=== PATIENT | female | born 1960 | race African-American/Black ===

== ENCOUNTER 2019-04-22 05:15 | Inpatient (IN) ==
[2019-04-22] MEDS ORDERED: NITROGLYCERIN 2% OINT 1 INCH/GM PACK TOP STA (06:20)
[2019-04-22] MEDS ORDERED: ASPIRIN 325 MG TABLET PO STA (06:20)
[2019-04-22] MEDS ORDERED: NITROGLYCERIN SL 0.4 MG TABLET SL PRN (06:20)
[2019-04-22 06:30] LABS: Basophils % 0.2 % (0.0-0.8); Eosinophils # 0.4 10*3/uL (0.0-0.87); Eosinophils % 7.2 % (0.00-10.9); Hematocrit 31.6 VOL% (35.7-47.0); Hemoglobin 9.8 GM/DL (12.0-16.0); Immature Granulocytes % 0.4 %; Immature Granulocytes Absolute 0.02 #; Lymphocytes # 0.8 10*3/uL (1.4-4.0); Lymphocytes % 17.4 % (21.3-54.2); Mean Corpuscular Volume 91.6 FL (87-102); Mean Platelet Volume 10.5 FL (9.6-12.0); Monocytes % 4.8 % (1.7-12.7); Platelet Count 213 T/CUMM (130-400); Red Blood Count 3.45 MC/CUMM (3.8-5.5); Red Cell Distribution Width 17.2 % (9.3-17.3); White Blood Count 4.8 T/CUMM (4-12)
[2019-04-22 06:43] LABS: Calcium 7.9 MG/DL (8.5-10.1); Osmolality,Calculated 277.2 MOS/KG (273-304)
[2019-04-22] MEDS ORDERED: carvediloL 3.125 MG TABLET PO STA (08:17)
[2019-04-22] MEDS ORDERED: carvediloL 25 MG TABLET PO STA (08:23)
[2019-04-22] MEDS ORDERED: ALBUTEROL/IPRATROPIUM 3 ML NEB RESP TX PRN (08:39)
[2019-04-22] MEDS ORDERED: ACETAMINOPHEN 325 MG TABLET PO PRN (08:39)
[2019-04-22] MEDS ORDERED: SIMETHICONE CHEW 125 MG TABLET PO PRN (08:39)
[2019-04-22] MEDS ORDERED: DOCUSATE SODIUM 100 MG CAPSULE PO PRN (08:39)
[2019-04-22] MEDS ORDERED: LACTULOSE 20 GM/30 ML UDCUP PO PRN (08:39)
[2019-04-22] MEDS ORDERED: ONDANSETRON 4 MG/2 ML VIAL IV PRN (08:39)
[2019-04-22] MEDS ORDERED: PANTOPRAZOLE 40 MG TABLET PO SCH (09:00)
[2019-04-22 09:06] LABS: Partial Thromboplastin Time 38.8 SECS (20.8-36.0)
[2019-04-22 09:11] LABS: INR 2.4
[2019-04-22 09:22] LABS: PT Patient Result 26.3 SECS (9.6-12.2)
[2019-04-22] MEDS ORDERED: NITROGLYCERIN TRANSDERM PRN (11:09)
[2019-04-22] MEDS ORDERED: oxyCODONE/ACETAMINOPHEN 5-325 MG TABLET PO PRN (11:09)
[2019-04-22] MEDS ORDERED: ASPIRIN EC 81 MG TABLET PO SCH (11:30)
[2019-04-22] MEDS ORDERED: CLOPIDOGREL 75 MG TABLET PO SCH (11:30)
[2019-04-22] MEDS: carvediloL 25 MG TABLET PO SCH ×2 (14:00→20:19)
[2019-04-22] MEDS: BUDESONIDE/FORMOTEROL 80-4.5 INHALER 6.9 GM INH SCH ×2 (14:00→20:20)
[2019-04-22] MEDS ORDERED: LOPERAMIDE 2 MG CAPSULE PO PRN (14:43)
[2019-04-22] MEDS ORDERED: HEPARIN 10,000 UNIT/10 ML VIAL IV SCH (17:30)
[2019-04-22] MEDS ORDERED: WARFARIN 4 MG TABLET PO SCH (18:00)
[2019-04-22 18:36] LABS: Hepatitis B Core IgM Quant 0.14 Index; Hepatitis B Surface Ag Quant 0.13 Index; Hepatitis B Surface Ag Result Negative (Negative); Hepatitis C Virus Ab Quant < 0.02 Index; Hepatitis C Virus Ab Result Negative (Negative)
[2019-04-22 20:10] VITALS: BP 158/96
[2019-04-22] MEDS ORDERED: LACTOBACILLUS ACIDOPHILUS/BULGARICUS CAPLET PO SCH (21:00)
[2019-04-22] MEDS ORDERED: ROSUVASTATIN 20 MG TABLET PO SCH (21:00)
[2019-04-23] MEDS ORDERED: LEVOTHYROXINE 75 MCG TABLET PO SCH (06:00)
[2019-04-23] MEDS ORDERED: LIDOCAINE 5% PATCH TRANSDERM SCH (09:00)
[2019-04-23] MEDS ORDERED: WARFARIN 5 MG TABLET PO SCH (18:00)
[2019-04-24] MEDS ORDERED: WARFARIN 10 MG TABLET PO SCH (18:00)
== END 2019-04-22 22:01 | disposition hospice, home (50) | DRG 291 ==
LOC: N.ED 05:15 → N.EDINP 08:39 → N.TELES 09:39
PROVIDERS: ADMIT Family Medicine; ATTEND Family Medicine